=== PATIENT | male | born 1965 | race Caucasian/White ===

== ENCOUNTER 2017-02-08 10:43 | Emergency (ER) | payer MEDICAID ==
--- NOTE | 2017-02-08 11:00 | CPEKG ---
Heart Rate: 59 RR Interval: 1017 P-R Interval: 200 QRSD Interval: 78 QT Interval: 396 QTC Interval: 393 P [place]: 23 QRS [place]: -9 T Wave [place]: 25 EKG Severity - NORMAL ECG - EKG Impression: SINUS RHYTHM Electronically Signed By: Luke Harley 11-Feb-2017 15:44:46
--- NOTE | 2017-02-08 11:03 | EDPHY ---
HPI/HX/ROS/PE/MDM Narrative: CHIEF COMPLAINT: Chest pain HPI: This patient is a 51 year old male complaining of two episodes of left-sided chest pain onset yesterday evening. While driving home around 7pm yesterday, he noted a sharp pain in his left chest running towards arm. This resolved quickly. Last night he woke up at 1am with soreness in his left chest, similar to the feeling of being "punched in the arm". This discomfort lasted around 30 minutes. He states he had similar soreness around two years ago, related to exercise on a river trip, and he worked on the river for the entirety of this summer. He denies shortness of breath, pain or swelling in his legs, or other associated symptoms. No family history of early onset cardiac disease. REVIEW OF SYSTEMS: Aside from elements discussed in the HPI, a comprehensive 10-point review of systems was reviewed and is negative. PMH: Denies SOCIAL HISTORY: Lives in [place]. Works as newspaper delivery driver. PHYSICAL EXAM: General:Patient is alert, in no acute distress. ENT:Eyes are normal to inspection. ENT inspection normal. Neck: Normal inspection. Full range of motion. Respiratory:No respiratory distress. Breath sounds normal bilaterally. Cardiovascular: Regular rate and rhythm. Strong peripheral pulses. Normal cap refill. Abdomen:The abdomen is nontender to palpation. There are no peritoneal signs. There are normal bowel sounds. Back: Normal to inspection. No tenderness to palpation. Skin: Normal color. No rash. Warm and dry. Extremities: Normal appearance. Full range of motion. Neuro: Oriented x3. Normal motor function. Normal sensory function. ED Course: 51 year old male presents with two episodes of left-sided chest pain onset yesterday evening, now resolved. Physical exam unremarkable. Low personal risk factors for early cardiac disease. Plan for chest x-ray, labs including CBC, BMP , and Troponin. Normal chest x-ray. Labs unremarkable. Plan to discharge home in good condition. He will follow up with [facility] this week for further evaluation. Return precautions discussed. The patient is comfortable with this plan. MDM: This patient presents with two episodes of fairly atypical chest pain. We performed an extensive workup in the ED including CXR, ECG and troponin, all of which were negative. Patient is asymptomatic. We discussed options and patient refuses admission for observation and risk stratification. I will refer to cardiology. We discussed strict return precautions. I see no signs of TAD, ACS , PE, PTx, PNA. - Data Points Imaging Results: Imaging Impressions Chest X-Ray 02/08/17 11:01 Impression: Normal chest x-ray. Imaging: I viewed and interpreted images myself Laboratory Results: Laboratory Results 02/08/17 10:55 02/08/17 10:55 02/08/17 02/08/17 10:55 10:55 WBC 7.97 10^3/uL 10^3/uL (3.80-9.50) RBC 5.47 10^6/uL 10^6/uL (4.40-6.38) Hgb 18.2 g/dL H g/dL (13.7-17.5) Hct 53.6 % H % (40.0-51.0) MCV 98.0 fL fL (81.5-99.8) MCH 33.3 pg pg (27.9-34.1) MCHC 34.0 g/dL g/dL (32.4-36.7) RDW 12.7 % % (11.5-15.2) Plt Count 243 10^3/uL 10^3/uL (150-400) MPV 9.6 fL fL (8.7-11.7) Neut % (Auto) 42.6 % % (39.3-74.2) Lymph % (Auto) 43.8 % % (15.0-45.0) [place] % (Auto) 7.3 % % (4.5-13.0) Eos % (Auto) 5.4 % % (0.6-7.6) Baso % (Auto) 0.8 % % (0.3-1.7) Nucleat RBC Rel Count 0.0 % % (0.0-0.2) Absolute Neuts (auto) 3.40 10^3/uL 10^3/uL (1.70-6.50) Absolute Lymphs (auto) 3.49 10^3/uL H 10^3/uL (1.00-3.00) Absolute Monos (auto) 0.58 10^3/uL 10^3/uL (0.30-0.80) Absolute Eos (auto) 0.43 10^3/uL H 10^3/uL (0.03-0.40) Absolute Basos (auto) 0.06 10^3/uL 10^3/uL (0.02-0.10) Absolute Nucleated RBC 0.00 10^3/uL 10^3/uL (0-0.01) Immature Gran % 0.1 % % (0.0-1.1) Immature Gran # 0.01 10^3/uL 10^3/uL (0.00-0.10) Sodium 139 mEq/L mEq/L (134-144) Potassium 4.7 mEq/L mEq/L (3.5-5.2) Chloride 105 mEq/L mEq/L (97-110) Carbon Dioxide 23 mEq/l mEq/l (22-31) Anion Gap 11 mEq/L mEq/L (8-16) BUN 14 mg/dL mg/dL (7-23) Creatinine 1.0 mg/dL mg/dL (0.7-1.3) Estimated GFR > 60 Glucose 84 mg/dL mg/dL (70-100) Calcium 10.0 mg/dL mg/dL (8.5-10.4) Troponin I < 0.012 ng/mL ng/mL (0.000-0.034) General Time Seen by Provider: 02/08/17 10:56 Initial Vital Signs: Initial Vital Signs Temperature (C) 36.4 C 02/08/17 10:46 Heart Rate 58 L 02/08/17 10:46 Respiratory Rate 16 02/08/17 10:46 Blood Pressure 156/106 H 02/08/17 10:46 O2 Sat (%) 97 02/08/17 10:46 O2 Delivery Mode Room Air Allergies/Adverse Reactions: No Known Allergies Allergy (Unverified 02/08/17 10:49) Home Medications: Medication Instructions Recorded NK [No Known Home Meds] 02/08/17 Departure - Departure Disposition: Home, Routine, Self-Care Clinical Impression: Chest pain Condition: Good Instructions: Chest Pain (ED) Additional Instructions: Follow-up with your primary doctor within 72 hours. Return to the Emergency Department for fever, chest pain, shortness of breath, increasing pain or other worsening of condition. Follow up with a special events assistant for further testing, as soon as possible, within one week. As we discussed, it is impossible to fully rule out heart disease as the cause of your chest pain in the emergency department. We would be happy to reevaluate you and observe you in the hospital at any time. Referrals: [facility] [Provider Group] - As per Instructions Shahram Luo MD [Medical Doctor] - As per Instructions Report Scribed for: Taiwo [place] Report Scribed by: Kala Aguilar Date of Report: 02/08/17 Time of Report: 11:03 Physician Review and Approval Statement: Portions of this note were transcribed by an ED scribe. I personally performed the history, physical exam, and medical decision making; and confirm the accuracy of the information in the transcribed note.
[2017-02-08 11:08] LABS: % IMMATURE GRANULYOCYTES 0.1 % (0.0-1.1); ABSOLUTE IMMATURE GRANULOCYTES 0.01 10^3/uL (0.00-0.10); ADD DIFF? NO; ADD MORPH? NO; ADD SCAN? NO; ATYPICAL LYMPHOCYTE FLAG 20 (0-99); FRAGMENT RBC FLAG 0 (0-99); HEMATOCRIT 53.6 % (40.0-51.0); HEMOGLOBIN 18.2 g/dL (13.7-17.5); LEFT SHIFT FLG 0 (0-99); LIPEMIA HEMOLYSIS FLAG 90 (0-99); MEAN CELL HEMOGLOBIN 33.3 pg (27.9-34.1); MEAN PLATELET VOLUME 9.6 fL (8.7-11.7); PLATELET CLUMPS FLAG 0 (0-99); PLATELET COUNT 243 10^3/uL (150-400); RED BLOOD CELL COUNT 5.47 10^6/uL (4.40-6.38); RED CELL DISTRIBUTION WIDTH 12.7 % (11.5-15.2)
[2017-02-08 11:10] VITALS: RESP 16; TEMP 97.5
[2017-02-08 11:18] LABS: ANION GAP 11 mEq/L (8-16); CARBON DIOXIDE 23 mEq/l (22-31); CHLORIDE 105 mEq/L (97-110); GLOMERULAR FILTRATION RATE > 60; GLUCOSE 84 mg/dL (70-100); POTASSIUM 4.7 mEq/L (3.5-5.2); SODIUM 139 mEq/L (134-144)
[2017-02-08 11:30] LABS: TROPONIN I < 0.012 ng/mL (0.000-0.034)
[2017-02-08 12:12] VITALS: BP 118/83; PULSE 72; O2SAT 94
== END 2017-02-08 12:11 | disposition home or self-care (01) ==
DX: R07.9 Chest pain, unspecified (principal)